=== PATIENT | male | born 1995 | race Hispanic/Latino ===

== ENCOUNTER 2022-08-31 22:12 | Emergency (ER) | payer OTHER ==
[~2022-08-31] VITALS: Ht 175.3 cm; Wt 95.3 kg
[2022-08-31] MEDS ORDERED: PROMETHAZINE HCL 25 MG/ML 1ML AMPULE IM ONE (22:30)
[2022-08-31 22:33] LABS: APPEARANCE,URINE CLEAR (CLEAR); BILIRUBIN,URINE NEGATIVE (NEGATIVE); COLOR,URINE YELLOW (YELLOW); GLUCOSE, URINE (UA) NEGATIVE (NEGATIVE); KETONES,URINE NEGATIVE (NEGATIVE); LEUKOCYTE ESTERASE ,URINE NEGATIVE Leu/uL (NEGATIVE); NITRATE,URINE NEGATIVE (NEGATIVE); OCCULT BLOOD,URINE NEGATIVE (NEGATIVE); PH,URINE 5.5 (5.0-8.0); PROTEIN,URINE 20 mg/dL (NEGATIVE); UROBILINOGEN,URINE 0.2 mg/dL (0.2-1.0)
[2022-08-31] MEDS: 0.9%NACL 1000ML 1,000 ML IV SCH ×2 (22:40→22:47)
[2022-08-31 22:46] LABS: BASOPHILS % (AUTO) 0.3 % (0.0-5.0); EOSINOPHILS % (AUTO) 0.2 % (0.0-8.0); HEMATOCRIT 48.1 % (42-54); LYMPHOCYTES % (AUTO) 6.7 % (21.0-51.0); MEAN CORPUSCULAR HEMOGLOBIN 28.4 pg (27.0-33.0); MEAN CORPUSCULAR HGB CONC 34.3 g/dL (32.0-36.0); MEAN CORPUSCULAR VOLUME 82.6 fL (79-99); MONOCYTES % (AUTO) 5.3 % (3.0-13.0); NEUTROPHILS % (AUTO) 84.9 % (40.0-77.0); PLATELET COUNT (AUTO) 299 K/uL (130-400); RED BLOOD CELL COUNT(AUTO) 5.82 MIL/uL (4.50-6.20); RED CELL DISTRIBUTION WIDTH 12.1 % (11.0-15.5)
[2022-08-31 22:55] LABS: CREATININE 1.1 mg/dL (0.5-1.5)
[2022-08-31 23:00] LABS: ALBUMIN 3.6 g/dL (3.5-5.0); TOTAL PROTEIN, SERUM 7.4 g/dL (6.0-8.3)
[2022-08-31] MEDS ORDERED: ONDA4TAB10 PO (23:22)
[2022-08-31] MEDS ORDERED: DICY20TA2 PO (23:22)
[2022-08-31 23:38] VITALS: BP 124/74
== END 2022-08-31 23:40 | disposition home or self-care (01) ==
LOC: EDH 22:12
DX: A08.4 Viral intestinal infection, unspecified (principal)
CPT/HCPCS: 99284; 76705; 80053; 83690; 85025; 87804 ×2; 81003; 36415; 96372; J7030; J2550